=== PATIENT | female | born 1945 | race African-American/Black ===

== ENCOUNTER 2024-09-14 16:49 | Emergency (ER) | payer SELFPAY ==
[~2024-09-14] VITALS: Ht 167.6 cm; Wt 109.0 kg
[2024-09-14 16:59] VITALS: O2SAT 98
[2024-09-14] MEDS ORDERED: IBUP-2029 MT (19:32)
[2024-09-14 19:43] VITALS: BP 160/90; PULSE 88; RESP 18; TEMP 36.94740; O2SAT 97
== END 2024-09-14 21:38 | disposition home or self-care (01) ==
LOC: ER 16:49
DX: S39.012A Strain of muscle, fascia and tendon of lower back, initial encounter (principal); M25.551 Pain in right hip; R03.0 Elevated blood-pressure reading, without diagnosis of hypertension; W01.0XXA Fall on same level from slipping, tripping and stumbling without subsequent striking against object, initial encounter; Y93.89 Activity, other specified; Y92.89 Other specified places as the place of occurrence of the external cause; Y99.8 Other external cause status
CPT/HCPCS: 72131; 72192; 99284